=== PATIENT | male | born 1970 | race Hispanic/Latino ===

== ENCOUNTER 2017-02-18 09:05 | Emergency (ER) | payer OTHER ==
[~2017-02-18] VITALS: Ht 170.2 cm; Wt 72.7 kg
[2017-02-18 09:08] VITALS: BP 166/97; PULSE 55; RESP 16; O2SAT 100
--- NOTE | 2017-02-18 09:11 | ED.REPORT ---
HPI-Extremity Problem Upper Date of Service Feb 18, 2017 ED Provider: Oscar Noel MD Patient is a 46 year old male with a history of shoulder dislocation and rotator cuff repair who presents to the ED complaining of left shoulder pain onset yesterday around 1600. The patient reports that the pain is exacerbated by range of motion of the arm. He denies numbness or weakness. Patient states that while he was at work, he jammed his arm into something and heard a "pop" in his shoulder. He tried taking pain medication without any relief. Nursing Notes Stated Complaint: HURT LT ARM AT WORK Chief Complaint: Extremity Trauma Nursing Notes Reviewed: Yes Allergies: Coded Allergies: No Known Allergies (Unverified , 02/18/17) General Time Seen by MD: 09:10 Chief Complaint Shoulder injury left Hx Obtained From: Patient Arrived By: Walk-in Onset Occurred: Yesterday Symptom Duration: Since onset Context: Occurred at: Workplace Location: : Shoulder left Quality: Painful, Throbbing Severity: Current: Moderate Exacerbated by: Range of motion Pertinent Negative: Relieved by nothing Similar Sx Previous: Yes Past Medical History Past Medical History shoulder dislocation Past Surgical History rotator cuff repair Smoking History Unknown if Ever Smoker Social History Other Social History: Local resident Ambulatory Status Independent Review of Systems Constitutional: Denies: Chills, Fever Musculoskeletal: Reports: Extremity pain (left shoulder), Denies: Extremity swelling Skin: Denies Itching, Denies Rash Neurologic: Denies: Numbness, Weakness Complete sys rev & neg: except as marked. Respiratory: Denies: Non-productive cough, Shortness of breath Hematologic: Denies Bruising Physical Exam Initial Vital Signs Vital Signs (First) Date Time Temp Pulse Resp B/P Pulse Ox O2 Delivery O2 Flow Rate FiO2 02/18/17 09:08 36.8 55 16 166/97 100 Initial VS: Reviewed General/Constitutional: Awake, Alert, No acute distress Neck: Atraumatic, Supple Respiratory / Chest: Atraumatic, No respiratory distress Upper Extremity / MS: No erythema, No deformity Upper Ext Brief Normals: Shoulder R exam normal, Arm R exam normal, Arm L exam normal, Elbow R exam normal, Elbow L exam normal, Forearm R exam normal, Forearm L exam normal, Wrist R exam normal, Wrist L exam normal, Hand R exam normal, Hand L exam normal Left Shoulder: Positive: ROM reduced, Warmth present, Negative: Deformity present, Erythema present, Swelling present..., Tenderness present... Wrist / Hand: Atraumatic, Inspection NL, No swelling, No erythema, Non-tender Skin: Atraumatic, Color NL, No rash, Warm, Dry Head / Eyes: Atraumatic, Normocephalic, PERRL, EOMI Lower Extremity / Pelvis / MS: Atraumatic, Full range of motion Psychiatric: Affect NL, Mood NL Interpretation & Diagnostics X-Ray Interpretation Xray Interpretation: IMPRESSION: No trauma found. Dictated by: Shaka Conley M.D. on 02/18/2017 at 10:07 Approved by: Shaka Conley M.D. on 02/18/2017 at 10:08 X-Ray Ordered: Shoulder left Interpretation / Wet Read by: Interpret - Radiologist Interpretation: Normal exam, No fracture/dislocation Re-Eval/Medical Decision Re-Evaluation/Progress : Re-Evaluation/Progress Note: Discussed X-ray results and plan for discharge. Patient understands and agrees to the plan. All questions were addressed. Counseled Regarding: Diagnosis, Lab results, Need for follow-up, When/why to return to ED Discharge & Departure Impression: Primary Impression: Shoulder pain Laterality: left Chronicity: acute Qualified Code: M25.512 - Pain in left shoulder Disposition: Home Discharge Condition All VS Reviewed: Yes Condition: Stable Patient Instructions: Shoulder Sprain (ED) Additional Instructions: Your X-ray was normal and reassuring. There was no evidence of a fracture. You can take Tylenol as needed for pain. Follow up with your primary care physician next week if you continue to have pain. Return to the emergency department if you develop any new or concerning symptoms. Referrals: [facility] Attestation Portions of this note were transcribed by Mecca Garrido. I, Dr. Noel personally performed the history, physical exam and medical decision-making; I reviewed and confirmed the accuracy of the information in the transcribed note. Signed by: [place] Colin, 02/18/17 and [id number]. copies to: [facility] Oscar Noel MD Feb 18, 2017 09:11 Reina Garrido Feb 18, 2017 09:19
--- NOTE | 2017-02-18 10:10 | DRSVH ---
PROCEDURE: X-RAY LEFT SHOULDER, 4 VIEWS INDICATIONS: trauma TECHNIQUE: 4 views of the shoulder were acquired. COMPARISON: None. FINDINGS: Bones: No fractures or dislocations. No suspicious bony lesions. Visualized ribs appear intact. Soft tissues: No suspicious soft tissue calcifications. IMPRESSION: No trauma found. Dictated by: Shaka Conley M.D. on 02/18/2017 at 10:07 Approved by: Shaka Conley M.D. on 02/18/2017 at 10:08
== END 2017-02-18 11:07 | disposition home or self-care (01) ==
LOC: SED 09:05
DX: S40.012A Contusion of left shoulder, initial encounter (principal); M25.512 Pain in left shoulder; W18.39XA Other fall on same level, initial encounter; Y92.79 Other farm location as the place of occurrence of the external cause; Y92.69 Other specified industrial and construction area as the place of occurrence of the external cause; Y99.0 Civilian activity done for income or pay